=== PATIENT | male | born 1960 | race Caucasian/White ===

== ENCOUNTER 2019-02-25 09:49 | Inpatient (IN) | payer OTHER ==
[2019-02-25 10:41] VITALS: BMI 31.4
--- NOTE | 2019-02-25 11:50 | HP ---
COWS - Scale Resting Pulse: 0= NE 80 or Below Sweatin= Chills/Flushing Restless Observation: 1= Difficult to Sit Still Pupil Size: 1= Pupils >than Normal Bone or Joint Aches: 2= Severe Diffuse Aches Runny Nose/ Eye Tearin= Runny Nose/Eyes GI Upset > 30mins: 2= Nausea/Diarrhea Tremor Observation: 2= Slight Tremor Visible Yawning Observation: 2= >3x During Session Anxiety or Irritability: 2=Irritable/Anxious Goose Flesh Skin: 0=Smooth Skin COWS Score: 15 CIWA Score - Admission Criteria OASAS Guidelines: Admission for Medically Managed Detox: Requires at least one of the followin. CIWA greater than 12 2. Seizures within the past 24 hours 3. Delirium tremens within the past 24 hours 4. Hallucinations within the past 24 hours 5. Acute intervention needed for co occurring medical disorder 6. Acute intervention needed for co occurring psychiatric disorder 7. Severe withdrawal that cannot be handled at a lower level of care (continued vomiting, continued diarrhea, abnormal vital signs) requiring intravenous medication and/or fluids 8. Admission ROS S - HPI Chief Complaint: i need help to stop using heroin Allergies/Adverse Reactions: Allergies Allergy/AdvReac Type Severity Reaction Status Date / Time No Known Allergies Allergy Verified 02/25/19 10:20 History of Present Illness: this 58 years old male with heroin dependence,seeking detox,withdrawal symptom, seen at [facility] refer for detox, last detox [facility] 02/19 completed but relapsing nicotine dependence 1 pack/day,would like nicotine patch low back pain plan for rehab no significant period of sobriety Exam Limitations: No Limitations - Ebola screening Have you traveled outside of the country in the last 21 days: No Have you had contact with anyone from an Ebola affected area: No Do you have a fever: No - Review of Systems Constitutional: Chills, Loss of Appetite, Malaise, Night Sweats, Changes in sleep, Weakness EENT: reports: Tearing, Nose Congestion Respiratory: reports: No Symptoms reported Cardiac: reports: No Symptoms Reported GI: reports: Diarrhea, Nausea, Vomiting, Abdominal cramping : reports: No Symptoms Reported Musculoskeletal: reports: Back Pain, Joint Pain, Muscle Pain, Joint Stiffness Integumentary: reports: Dryness Neuro: reports: Headache, Tremors Endocrine: reports: No Symptoms Reported, See HPI, Excessive Sweating, Flushing Hematology: reports: No Symptoms Reported Psychiatric: reports: No Sypmtoms Reported, Judgement Intact, Mood/Affect Appropiate, Orientated x3 Other Systems: Reviewed and Negative Patient History - Patient Medical History Hx Anemia: No Hx Asthma: No Hx Chronic Obstructive Pulmonary Disease (COPD): No Hx Cancer: No Hx Cardiac Disorders: No Hx Congestive Heart Failure: No Hx Hypertension: No Hx Hypercholesterolemia: No Hx Pacemaker: No HX Cerebrovascular Accident: No Hx Seizures: No Hx Dementia: No Hx Diabetes: No Hx Gastrointestinal Disorders: No Hx Liver Disease: No Hx Genitourinary Disorders: No Hx Sexually Transmitted Disorders: No Hx Renal Disease (ESRD): No Hx Thyroid Disease: No Hx Human Immunodeficiency Virus (HIV): No (2016 negative) Hx Hepatitis C: No Hx Depression: No Hx Suicide Attempt: No Hx Bipolar Disorder: No Hx Schizophrenia: No Other Medical History: no suicidal,no homicidal - Patient Surgical History Past Surgical History: No - PPD History Previous Implant?: Yes Documented Results: Negative w/o proof Implanted On Prior [facility] Admission?: No PPD to be Administered?: Yes - Smoking Cessation Smoking history: Current every day smoker Have you smoked in the past 12 months: Yes Aproximately how many cigarettes per day: 20 Hx Chewing Tobacco Use: No Initiated information on smoking cessation: Yes 'Breaking Loose' booklet given: 02/25/19 - Substance & Tx. History Hx Alcohol Use: No Hx Substance Use: Yes Substance Use Type: Heroin Hx Substance Use Treatment: Yes ([facility] 02/19) - Substances abused Heroin Substance route: Inhalation Frequency: Daily Amount used: 15 bags Age of first use: 53 Date of last use: 02/24/19 Family Disease History - Family Disease History Family Disease History: Other: Daughter (dsa,alcohol) Admission Physical Exam BHS - Vital Signs Vital Signs: Vital Signs - 24 hr 02/25/19 02/25/19 10:38 11:38 Temperature 98.3 F 98.3 F Pulse Rate 59 L 59 L Respiratory 20 20 Rate Blood Pressure 125/80 125/80 - Physical General Appearance: Yes: Moderate Distress, Tremorous, Irritable, Sweating, Anxious HEENTM: Yes: Normal ENT Inspection, FIGUEROA, Pharynx Normal Respiratory: Yes: Lungs Clear, Normal Breath Sounds, No Respiratory Distress Neck: Yes: Within Normal Limits, Supple, Trachea in good position Breast: Yes: Within Normal Limits Cardiology: Yes: Bradycardia Abdominal: Yes: Within Normal Limits, Normal Bowel Sounds, Non Tender, Flat, Soft Genitourinary: Yes: Within Normal Limits Back: Yes: Normal Inspection, Muscle Spasm Musculoskeletal: Yes: full range of Motion, Back pain, Joint Stiffness, Muscle Pain Extremities: Yes: Within Normal Limits, Normal Range of Motion, Tremors 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, Fully Oriented, Alert, Motor Strength 5/5 Integumentary: Yes: Dry Lymphatic: Yes: Within Normal Limits - Diagnostic (1) Opioid dependence with withdrawal Current Visit: Yes Status: Acute (2) Nicotine dependence Current Visit: Yes Status: Acute (3) Insomnia Current Visit: Yes Status: Acute (4) Dehydration Current Visit: Yes Status: Acute Cleared for Admission S - Detox or Rehab [facility] Level of Care: Medically Managed Detox Regimen/Protocol: Methadone Screened but not Admitted - Documentation of Visit Screened but not Admitted: No Breathalyzer - Breathalyzer Breathalyzer: 0 Urine Drug Screen - Test Device Lot number: [id number] Expiration date: 11/01/20 - Control Is test valid?: Yes - Results Drug screen NEGATIVE: No Urine drug screen results: FEN-Fentanyl, MOP-Opiates, MTD-Methadone, BZO- Benzodiazepines Inpatient Rehab Admission - Rehab Decision to Admit Inpatient rehab admission?: No
[2019-02-25] MEDS ORDERED: IBUPROFEN 400 MG TABLET (FP) PO PRN (12:00)
[2019-02-25] MEDS ORDERED: MAG HYDROX/AL HYDROX/SIMETH 30 ML UNIT-DOSE CUP PO PRN (12:00)
[2019-02-25] MEDS ORDERED: BISMUTH SUBSALICYLATE 262 MG/15 ML BTL PO PRN (12:00)
[2019-02-25] MEDS ORDERED: MENTHOL/PHENOL 1 EACH UD MM PRN (12:00)
[2019-02-25] MEDS ORDERED: ACETAMINOPHEN 325 MG TABLET (FP) PO PRN ×2 (12:00)
[2019-02-25] MEDS ORDERED: MELATONIN 5 MG TABLETS PO PRN (12:00)
[2019-02-25] MEDS ORDERED: MAGNESIUM HYDROX 2400MG/30ML ORAL SUSPENSION 30 ML CUP PO PRN (12:00)
[2019-02-25] MEDS ORDERED: hydrOXYzine PAMOATE 25 MG CAPSULE (FP) PO PRN (12:00)
[2019-02-25] MEDS ORDERED: MAGNESIUM CITRATE 300 ML BOTTLE PO PRN (12:00)
[2019-02-25] MEDS ORDERED: TRIMETHOBENZAMIDE HCL 200MG/2ML INJ IM PRN (12:02)
[2019-02-25] MEDS ORDERED: METHADONE HCL 10 MG TABLET (FOR DETOX USE ONLY) PO ONE ×2 (12:20→23:00)
[2019-02-25] MEDS: NICOTINE 21 MG/24 HOURS TOPICAL PATCH TD SCH (13:09)
[2019-02-25] MEDS: METHOCARBAMOL 500 MG TABLET PO PRN ×2 (14:31→22:13)
[2019-02-25] MEDS: diazePAM 5 MG TABLET PO PRN ×2 (14:31→22:12)
[2019-02-25 15:32] LABS: HEMATOCRIT 42.9 % (35.4-49); HEMOGLOBIN 14.9 GM/dL (11.7-16.9); MCH 28.7 pg (25.7-33.7); MCHC 34.7 g/dl (32.0-35.9); MEAN CELL VOLUME 82.6 fl (80-96); MEAN PLT VOLUME 8.9 fl (7.5-11.1); PLATELET COUNT 223 K/MM3 (134-434); RBC 5.19 M/mm3 (4.00-5.60); RDW 13.5 % (11.9-15.9); WHITE BLOOD COUNT 11.5 K/mm3 (4.0-10.0)
[2019-02-25 16:03] LABS: BILIRUBIN,TOTAL 0.7 mg/dL (0.2-1); BLOOD UREA NITROGEN 13.8 mg/dL (7-18); CALCIUM 9.2 mg/dL (8.5-10.1); CREATININE 0.9 mg/dL (0.55-1.3); TOT PROT 7.8 g/dl (6.4-8.2)
[2019-02-25] MEDS: cloNIDine HCL 0.1 MG TABLET PO PRN (17:12)
[2019-02-25 17:59] LABS: EPI CELLS 0.8 /HPF (0-5/HPF); HYALINE CASTS 7 /lpf (0-8); URINE APPEARANCE TURBID; URINE BACTERIA 1.4 /hpf (NEGATIVE); URINE BILIRUBIN NEGATIVE (NEGATIVE); URINE COLOR ORANGE; URINE GLUCOSE (UA) NEGATIVE (NEGATIVE); URINE KETONE TRACE (NEGATIVE); URINE LEUK ESTERASE TRACE (NEGATIVE); URINE NITRITE NEGATIVE (NEGATIVE); URINE PROTEIN TRACE (NEGATIVE); URINE RBC 17 /hpf (0-4); URINE UROBILINOGEN 0.2 mg/dL (0.2-1.0); URINE WBC 2 /hpf (0-5)
[2019-02-25] MEDS: THIAMINE HCL 100 MG TABLET (FP) PO SCH (22:13)
[2019-02-26] MEDS ORDERED: METHADONE HCL 10 MG TABLET (FOR DETOX USE ONLY) PO ONE (10:00)
[2019-02-26] MEDS: diazePAM 5 MG TABLET PO PRN ×2 (10:10→20:45)
[2019-02-26] MEDS: PRENATAL VITAMINS W/ FOLIC ACID TABLET (FP) PO SCH (10:10)
[2019-02-26] MEDS: NICOTINE 21 MG/24 HOURS TOPICAL PATCH TD SCH (10:10)
[2019-02-26] MEDS: METHOCARBAMOL 500 MG TABLET PO PRN (10:11)
[2019-02-26] MEDS ORDERED: TRIMETHOBENZAMIDE HCL 300 MG CAPSULE PO PRN (10:15)
--- NOTE | 2019-02-26 10:28 | CONSULT ---
[facility] Psychiatric Consult - Data Date of interview: 02/26/19 Admission source: [facility] Identifying data: First admission to [facility] for this patient, referred by [facility], for detoxification treatment (heroin). Interviewed in the presence of medical students (patient gave verbal permission) . Patient is , a father of two, domiciled and currently employed as a social worker psychiatric. Substance Abuse History: Discussed in this session. Mr Squires confirms a history of escalating heroin use (1000 dollars every two weeks) and sporadic use of cocaine (not used for several months). More details in current [facility] report as follows : Smoking history: Current every day smoker. Have you smoked in the past 12 months: Yes. Aproximately how many cigarettes per day: 20. Hx Chewing Tobacco Use: No. Initiated information on smoking cessation: Yes. ' Breaking Loose' booklet given: 02/25/19. - Substance & Tx. History. Hx Alcohol Use: No. Hx Substance Use: Yes. Substance Use Type: Heroin. Hx Substance Use Treatment: Yes ([facility] 02/19). - Substances abused. Heroin. Substance route: Inhalation. Frequency: Daily. Amount used: 15 bags. Age of first use: 53. Date of last use: 02/24/19 Medical History: Medical profile is remarkable for a distant history of neurosurgery (craniotomy) for meningioma at age 28, seizure disorder ( prescribed levetiracetam but non-adherent) and episodic perceptual disturbances (auras, cacosmia, visual hallucinations : light flashes, colors). No reported allergies. Psychiatric History: Patient denies history of psychiatric hospitalizations. Only one CPEP visit at [facility] three weeks ago for a withdrawal syndrome. Mr Squires endorses MDD as his psychiatric diagnosis and he indicates that, a year ago, he was maintained on a regimen of paroxetine + quetiapine. Patient reports that his addiction to heroin escalated after the of his (1 1/2 years ago). He has stopped seeing his psychiatrist, Dr Donn Mcgraw , for medication management and dropped out of psychiatric follow-up (for several months). No reported history of suicide attempts. Physical/Sexual Abuse/Trauma History: Heavy history of trauma : witnessed the of his (opioid overdose). Additional Comment: Urine drug screen results: FEN-Fentanyl, MOP-Opiates, MTD- Methadone, BZO-Benzodiazepines. Noted. Mental Status Exam - Mental Status Exam Alert and Oriented to: Time, Place, Person Cognitive Function: Good Patient Appearance: Disheveled (unshaven but wearing clean hospital gowns) Mood: Nervous, Anxious, Apprehensive Affect: Mood Congruent, Constricted Patient Behavior: Fatigued, Talkative, Appropriate, Cooperative Speech Pattern: Clear, Appropriate (articulate, clear historian), Excessive Voice Loudness: Normal Thought Process: Intact, Goal Oriented Thought Disorder: Not Present Hallucinations: Denies Suicidal Ideation: Denies Homicidal Ideation: Denies Insight/Judgement: Poor Sleep: Poorly, Difficulty falling asleep Appetite: Good Muscle strength/Tone: Normal Gait/Station: Normal Psychiatric Findings - Problem List ([place] 1, 2,3) (1) Opioid dependence with withdrawal Current Visit: Yes Status: Acute (2) Nicotine dependence Current Visit: Yes Status: Chronic (3) Substance induced mood disorder Current Visit: Yes Status: Chronic (4) Insomnia Current Visit: Yes Status: Chronic (5) Non-compliance Current Visit: Yes Status: Chronic - Initial Treatment Plan Initial Treatment Plan: Psychoeducation. Support and empathy. Sleep hygiene. Detoxification. Relapse prevention measures (MAT) : discussed in this session. Motivational counseling. AA meetings. Groups. Patient is reminded of the importance of adherence to anticonvulsant medications + compliance with appointments with his neurologist. Rehabilitation recommended. No indication for resumption of SSRI medications (not taken for a year + complaint of sexual adverse effects). On the other hand, the patient has expressed interest for trazodone at bedtime (insomnia). Seroquel is offered (rejected by the patient due to his diabetic status). Trazodone 50 mg po hs. Side effects/benefits discussed. Mr Squires is made aware, in particular, of the risk of priapism. Gave his verbal consent for the inclusion of this drug to the current regime of medications. Observation.
--- NOTE | 2019-02-26 10:33 | EKG ---
Test Reason : Blood Pressure : / mmHG Vent. Rate : 048 BPM Atrial Rate : 048 BPM P-R Int : 174 ms QRS Dur : 106 ms QT Int : 470 ms P-R-T Axes : 033 -09 014 degrees QTc Int : 419 ms SINUS BRADYCARDIA OTHERWISE NORMAL ECG NO PREVIOUS ECGS AVAILABLE Confirmed by Fritz Zavaleta MD ([id number]) on 02/26/2019 10:33:13 AM Referred By: Confirmed By:Fritz Zavaleta MD
--- NOTE | 2019-02-26 15:19 | PN ---
BHS COWS - Scale Resting Pulse: 0= [place] 80 or Below Sweatin= Chills/Flushing Restless Observation: 1= Difficult to Sit Still Pupil Size: 0= Normal to Room Light Bone or Joint Aches: 2= Severe Diffuse Aches Runny Nose/ Eye Tearin= None GI Upset > 30mins: 3= Vomiting/Diarrhea Tremor Observation of Outstretched Hands: 2= Slight Tremor Visible Yawning Observation: 1= 1-2x During Session Anxiety or Irritability: 4=Extreme Anxiety Goose Flesh Skin: 0=Smooth Skin COWS Score: 14 BHS Progress Note (SOAP) Subjective: Anxious, Sweating, Nausea, Stomach Cramping, Body Aches, Diarrhea, Interrupted Sleep. Objective: PATIENT A & O X 3, OBSERVED AMBULATING ON UNIT UNASSISTED. IN NO ACUTE DISTRESS. PATIENT IS AFEBRILE. 02/26/19 15:15 Vital Signs Temperature 98.7 F 02/26/19 13:26 Pulse Rate 67 02/26/19 13:26 Respiratory Rate 20 02/26/19 13:26 Blood Pressure 112/80 02/26/19 13:26 O2 Sat by Pulse Oximetry (%) Laboratory Tests 02/25/19 02/25/19 02/25/19 12:00 12:00 12:00 WBC 11.5 H RBC 5.19 Hgb 14.9 Hct 42.9 MCV 82.6 MCH 28.7 MCHC 34.7 RDW 13.5 Plt Count 223 MPV 8.9 Sodium 137 Potassium 4.0 Chloride 104 Carbon Dioxide 26 Anion Gap 7 L BUN 13.8 Creatinine 0.9 Est GFR (CKD-EPI)AfAm 109.50 Est GFR (CKD-EPI)NonAf 94.48 Random Glucose 105 Calcium 9.2 Total Bilirubin 0.7 AST 13 L ALT 21 Alkaline Phosphatase 87 Total Protein 7.8 Albumin 4.0 Urine Color Urine Appearance Urine pH Ur Specific [place] Urine Protein Urine Glucose (UA) Urine Ketones Urine Blood Urine Nitrite Urine Bilirubin Urine Urobilinogen Ur Leukocyte Esterase Urine WBC (Auto) Urine RBC (Auto) Urine Casts (Auto) U Epithel Cells (Auto) Urine Bacteria (Auto) RPR Titer Nonreactive 02/25/19 17:18 WBC RBC Hgb Hct MCV MCH MCHC RDW Plt Count MPV Sodium Potassium Chloride Carbon Dioxide Anion Gap BUN Creatinine Est GFR (CKD-EPI)AfAm Est GFR (CKD-EPI)NonAf Random Glucose Calcium Total Bilirubin AST ALT Alkaline Phosphatase Total Protein Albumin Urine Color [place] Urine Appearance Turbid Urine pH 5.0 Ur Specific [place] 1.025 Urine Protein Trace Urine Glucose (UA) Negative Urine Ketones Trace H Urine Blood 3+ H Urine Nitrite Negative Urine Bilirubin Negative Urine Urobilinogen 0.2 Ur Leukocyte Esterase Trace Urine WBC (Auto) 2 Urine RBC (Auto) 17 Urine Casts (Auto) 7 U Epithel Cells (Auto) 0.8 Urine Bacteria (Auto) 1.4 RPR Titer LABS NOTED. ELEVATED ADMISSION WBC LEVEL NOTED. PATIENT REPORTS HISTORY OF OCCASIONAL BRIEF EPISODES OF SOB, BUT DENIES CURRENTLY. PATIENT DENIES ANY UNUSUAL URINARY COMPLAINTS (BURNING, PAIN, FREQUENCY, URGENCY , HESITANCY). 02/26/19 15:19 Assessment: 02/26/19 15:17 WITHDRAWAL SYMPTOMS. LEUKOCYTOSIS HEMATURIA. 02/26/19 15:17 Plan: CONTINUE DETOX. INCREASE DAILY PO WATER INTAKE. REPAT UA FOR HEMATURIA NOTED ON ADMISSION UA ASSESSMENT. REPEAT CBC FOR ELEVATED WBC LEVEL NOTED ON ADMISSION CBC - RESULT PENDING. PATIENT REPORTS THAT HE HEARS VOICES SOMETIMES, BUT HE DENIES CAH FROM THE VOICES. PSYCHIATRIC CONSULTATION ALREADY PREVIOUSLY ORDERED FOR PATIENT.
--- NOTE | 2019-02-26 15:24 | PN ---
[facility] Progress Note Note: ALTHOUGH PATIENT APPARENTLY DENIED SO ON DETOX ADMISSION HISTORY AND PHYSICAL ASSESSMENT, PATIENT NOW REPORTS A HISTORY OF POSITIVE PPD (DUE TO A VACCINATION THAT HE RECEIVED DURING CHILDHOOD). CXR ORDERED. Zenia CYR NP
[2019-02-26 15:32] LABS: BASO % 0.3 % (0-2.0); EOS % 0.1 % (0-4.5); HEMATOCRIT 42.6 % (35.4-49); HEMOGLOBIN 14.7 GM/dL (11.7-16.9); LYMPH % 13.7 % (8-40); MCH 28.3 pg (25.7-33.7); MCHC 34.6 g/dl (32.0-35.9); MEAN CELL VOLUME 81.9 fl (80-96); MEAN PLT VOLUME 8.6 fl (7.5-11.1); MONO % 6.7 % (3.8-10.2); NEUT % 79.2 % (42.8-82.8); PLATELET COUNT 244 K/MM3 (134-434); RBC 5.21 M/mm3 (4.00-5.60); RDW 13.1 % (11.9-15.9); WHITE BLOOD COUNT 14.4 K/mm3 (4.0-10.0)
[2019-02-26] MEDS ORDERED: traZODone HCL 50 MG TABLET (FP) PO SCH (22:00)
[2019-02-26] MEDS: THIAMINE HCL 100 MG TABLET (FP) PO SCH (22:11)
[2019-02-27] MEDS: diazePAM 5 MG TABLET PO PRN ×2 (03:16→09:16)
[2019-02-27] MEDS: cloNIDine HCL 0.1 MG TABLET PO PRN (07:33)
[2019-02-27] MEDS: METHOCARBAMOL 500 MG TABLET PO PRN (07:36)
[2019-02-27 09:01] VITALS: BP 102/62; PULSE 69; TEMP 98.7
[2019-02-27] MEDS: NICOTINE 21 MG/24 HOURS TOPICAL PATCH TD SCH (09:16)
[2019-02-27] MEDS: PRENATAL VITAMINS W/ FOLIC ACID TABLET (FP) PO SCH (09:16)
[2019-02-27] MEDS ORDERED: METHADONE HCL 10 MG TABLET (FOR DETOX USE ONLY) PO ONE (10:00)
--- NOTE | 2019-02-27 16:06 | PN ---
BHS COWS - Scale Resting Pulse: 0= [place] 80 or Below Sweatin= Chills/Flushing Restless Observation: 1= Difficult to Sit Still Pupil Size: 0= Normal to Room Light Bone or Joint Aches: 2= Severe Diffuse Aches Runny Nose/ Eye Tearin= None GI Upset > 30mins: 2= Nausea/Diarrhea Tremor Observation of Outstretched Hands: 2= Slight Tremor Visible Yawning Observation: 1= 1-2x During Session Anxiety or Irritability: 2=Irritable/Anxious Goose Flesh Skin: 0=Smooth Skin COWS Score: 11 BHS Progress Note (SOAP) Subjective: Anxious, Nausea, Tremors, Body Aches, Stomach Cramping, Nausea. Objective: PATIENT A & O X 3, OBSERVED AMBULATING ON UNIT UNASSISTED. IN NO ACUTE DISTRESS. 02/27/19 16:07 Vital Signs Temperature 98.7 F 02/27/19 09:01 Pulse Rate 69 02/27/19 09:01 Respiratory Rate 18 02/27/19 09:01 Blood Pressure 102/62 02/27/19 09:01 O2 Sat by Pulse Oximetry (%) Laboratory Tests 02/25/19 02/25/19 02/25/19 12:00 12:00 12:00 WBC 11.5 H RBC 5.19 Hgb 14.9 Hct 42.9 MCV 82.6 MCH 28.7 MCHC 34.7 RDW 13.5 Plt Count 223 MPV 8.9 Absolute Neuts (auto) Neutrophils % Lymphocytes % Monocytes % Eosinophils % Basophils % Nucleated RBC % Sodium 137 Potassium 4.0 Chloride 104 Carbon Dioxide 26 Anion Gap 7 L BUN 13.8 Creatinine 0.9 Est GFR (CKD-EPI)AfAm 109.50 Est GFR (CKD-EPI)NonAf 94.48 Random Glucose 105 Calcium 9.2 Total Bilirubin 0.7 AST 13 L ALT 21 Alkaline Phosphatase 87 Total Protein 7.8 Albumin 4.0 Urine Color Urine Appearance Urine pH Ur Specific [place] Urine Protein Urine Glucose (UA) Urine Ketones Urine Blood Urine Nitrite Urine Bilirubin Urine Urobilinogen Ur Leukocyte Esterase Urine WBC (Auto) Urine RBC (Auto) Urine Casts (Auto) U Epithel Cells (Auto) Urine Bacteria (Auto) RPR Titer Nonreactive 02/25/19 02/26/19 17:18 12:00 WBC 14.4 H RBC 5.21 Hgb 14.7 Hct 42.6 MCV 81.9 MCH 28.3 MCHC 34.6 RDW 13.1 Plt Count 244 MPV 8.6 Absolute Neuts (auto) 11.4 H Neutrophils % 79.2 Lymphocytes % 13.7 Monocytes % 6.7 Eosinophils % 0.1 Basophils % 0.3 Nucleated RBC % 0 Sodium Potassium Chloride Carbon Dioxide Anion Gap BUN Creatinine Est GFR (CKD-EPI)AfAm Est GFR (CKD-EPI)NonAf Random Glucose Calcium Total Bilirubin AST ALT Alkaline Phosphatase Total Protein Albumin Urine Color [place] Urine Appearance Turbid Urine pH 5.0 Ur Specific [place] 1.025 Urine Protein Trace Urine Glucose (UA) Negative Urine Ketones Trace H Urine Blood 3+ H Urine Nitrite Negative Urine Bilirubin Negative Urine Urobilinogen 0.2 Ur Leukocyte Esterase Trace Urine WBC (Auto) 2 Urine RBC (Auto) 17 Urine Casts (Auto) 7 U Epithel Cells (Auto) 0.8 Urine Bacteria (Auto) 1.4 RPR Titer LABS NOTED. RESULTS OF REPEAT CBC NOTED. WBC LEVEL NOW NOTED TO BE FURTHER INCREASED TO 14.4. 02/27/19 16:08 Assessment: 02/27/19 16:09 WITHDRAWAL SYMPTOMS. LEUKOCYTOSIS. Plan: CONTINUE DETOX PATIENT DENIES ANY UNUSUAL URINARY COMPLAINTS (BURNING, PAIN, FREQUENCY, URGENCY , HESITANCY). REPEAT UA NEVER COLLECTED. PATIENT DENIES SOB, CHEST PAIN, AND DYSPNEA. LUNG SOUNDS AUSCULTATED CLEAR AND EQUAL BILATERALLY. SITE MONITOR WAS ABOUT TO CONTACT [facility] ER TO INQUIRE ABOUT SENDING PATIENT FOR FURTHER MEDICAL EVALUATION FOR ELEVATED WBC LEVEL NOTED ON ADMISSION AND ON REPEAT LABORATORY ASSESSMENT. HOWEVER, PATIENT ELECTED LEAVE DETOX UNIT AGAINST MEDICAL ADVICE BEFORE SITE MONITOR COULD SO. PATIENT MADE AWARE OF ABNORMAL WBC RESULTS, BUT ELECTED TO LEAVE DETOX UNIT AGAINST MEDICAL ADVICE ANYWAY. SEE FOLLOWING [facility] DETOX DISCHARGE SUMMARY.
--- NOTE | 2019-02-27 16:22 | DS ---
[facility] Detox Discharge Summary Admission Date: 02/25/19 Discharge Date: 02/27/19 - History Present History: Opioid Dependence Additional Comments: PATIENT REPORTS THAT HE HAS A PERSONAL ISSUE TO ATTEND TO AND THAT HE DOES NOT WISH TO REMAIN TO COMPLETE DETOX REGIMEN. RISKS OF LEAVING DETOX UNIT AGAINST MEDICAL ADVICE AND PRIOR TO COMPLETION OF DETOX REGIMEN EXPLAINED TO PATIENT. DESPITE WANTING TO LEAVE DETOX UNIT AGAINST MEDICAL ADVICE, PATIENT STILL STRONGLY ADVISED, PRIOR TO LEAVING DEOTX UNIT, TO BE TAKEN VIA AMBULANCE TO [facility] ER FOR FURTHER MEDICAL EVALUATION FOR ELEVATED WBC LEVEL NOTED ON DETOX ADMISSION AND REPEAT LABORATORY ASSESSMENTS AND FOR HEMATURIA NOTED ON ADMISSION UA (REPEAT UA ORDERED FOR FURTHER EVALUATION; HOWEVER, PATIENT DID NOT SUBMIT URINE FOR REPEAT UA PRIOR TO LEAVING DETOX UNIT AGAINST MEDICAL ADVICE). 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 PATIENT ADVISED TO DO SOON POSSIBLE. COPIES OF RESULTS OF ALL LABS (INCLUDING ADMISSION AND REPEAT CBC AND UA) DRAWN WHILE ADMITTED FOR DETOX GIVEN TO PATIENT AT TIME OF DISCHARGE FROM DETOX UNIT. PATIENT ALSO ADVISED TO GO IMMEDIATELY TO NEAREST ER SHOULD ANY INTOLERABLE WITHDRAWAL / DETOX SYMPTOMS DEVELOP AT ANY TIME. PATIENT VERBALIZED UNDERSTANDING OF ALL INFORMATION / RECOMMENDATIONS PRESENTED TO HIM PRIOR TO DEPARTURE FROM DETOX UNIT. PATIENT AFEBRILE AT TIME IN WHICH HE LEFT DETOX UNIT. Pertinent Past History: Nicotine Dependence, Dehydration, Insomnia, Hematuria, Leukocytosis. - Physical Exam Results Vital Signs: Vital Signs Temperature 98.7 F 02/27/19 09:01 Pulse Rate 69 02/27/19 09:01 Respiratory Rate 18 02/27/19 09:01 Blood Pressure 102/62 02/27/19 09:01 O2 Sat by Pulse Oximetry (%) Pertinent Admission Physical Exam Findings: WITHDRAWAL SYMPTOMS. Laboratory Tests 02/25/19 02/25/19 02/25/19 12:00 12:00 12:00 WBC 11.5 H RBC 5.19 Hgb 14.9 Hct 42.9 MCV 82.6 MCH 28.7 MCHC 34.7 RDW 13.5 Plt Count 223 MPV 8.9 Absolute Neuts (auto) Neutrophils % Lymphocytes % Monocytes % Eosinophils % Basophils % Nucleated RBC % Sodium 137 Potassium 4.0 Chloride 104 Carbon Dioxide 26 Anion Gap 7 L BUN 13.8 Creatinine 0.9 Est GFR (CKD-EPI)AfAm 109.50 Est GFR (CKD-EPI)NonAf 94.48 Random Glucose 105 Calcium 9.2 Total Bilirubin 0.7 AST 13 L ALT 21 Alkaline Phosphatase 87 Total Protein 7.8 Albumin 4.0 Urine Color Urine Appearance Urine pH Ur Specific [place] Urine Protein Urine Glucose (UA) Urine Ketones Urine Blood Urine Nitrite Urine Bilirubin Urine Urobilinogen Ur Leukocyte Esterase Urine WBC (Auto) Urine RBC (Auto) Urine Casts (Auto) U Epithel Cells (Auto) Urine Bacteria (Auto) RPR Titer Nonreactive 02/25/19 02/26/19 17:18 12:00 WBC 14.4 H RBC 5.21 Hgb 14.7 Hct 42.6 MCV 81.9 MCH 28.3 MCHC 34.6 RDW 13.1 Plt Count 244 MPV 8.6 Absolute Neuts (auto) 11.4 H Neutrophils % 79.2 Lymphocytes % 13.7 Monocytes % 6.7 Eosinophils % 0.1 Basophils % 0.3 Nucleated RBC % 0 Sodium Potassium Chloride Carbon Dioxide Anion Gap BUN Creatinine Est GFR (CKD-EPI)AfAm Est GFR (CKD-EPI)NonAf Random Glucose Calcium Total Bilirubin AST ALT Alkaline Phosphatase Total Protein Albumin Urine Color [place] Urine Appearance Turbid Urine pH 5.0 Ur Specific [place] 1.025 Urine Protein Trace Urine Glucose (UA) Negative Urine Ketones Trace H Urine Blood 3+ H Urine Nitrite Negative Urine Bilirubin Negative Urine Urobilinogen 0.2 Ur Leukocyte Esterase Trace Urine WBC (Auto) 2 Urine RBC (Auto) 17 Urine Casts (Auto) 7 U Epithel Cells (Auto) 0.8 Urine Bacteria (Auto) 1.4 RPR Titer LABS NOTED. - Treatment Hospital Course: Detox Protocol Followed - Medication Discharge Medications: Ambulatory Orders NK [No Known Home Medication] 02/25/19 - Diagnosis (1) Dehydration Status: Acute (2) Hematuria Status: Acute Qualifiers: Hematuria type: unspecified type Qualified Code(s): R31.9 - Hematuria, unspecified (3) Leukocytosis Status: Acute Qualifiers: Leukocytosis type: unspecified Qualified Code(s): D72.829 - Elevated white blood cell count, unspecified (4) Opioid dependence with withdrawal Status: Acute (5) Insomnia Status: Chronic Qualifiers: Insomnia type: unspecified Qualified Code(s): G47.00 - Insomnia, unspecified (6) Nicotine dependence Status: Chronic Qualifiers: Nicotine product type: cigarettes Substance use status: uncomplicated Qualified Code(s): F17.210 - Nicotine dependence, cigarettes, uncomplicated (7) Non-compliance Status: Chronic (8) Substance induced mood disorder Status: Chronic - AMA Did Patient Leave Against Medical Advice: Yes (PT HAD PERSONAL ISSUE AND DID NOT WISH TO REMAIN TO COMPLETE DETOX.)
[2019-02-28] MEDS ORDERED: METHADONE (DETOX) 10 MG, METHADONE (DETOX) 5 MG PO ONE (10:00)
[2019-02-28] MEDS ORDERED: METHADONE HCL 10 MG TABLET (FOR DETOX USE ONLY) PO ONE (10:00)
[2019-03-01] MEDS ORDERED: METHADONE HCL 5 MG TABLET (FOR DETOX USE ONLY) PO ONE (06:00)
[2019-03-01] MEDS ORDERED: METHADONE HCL 10 MG TABLET (FOR DETOX USE ONLY) PO ONE (10:00)
[2019-03-02] MEDS ORDERED: METHADONE HCL 5 MG TABLET (FOR DETOX USE ONLY) PO ONE (06:00)
== END 2019-02-27 11:07 | disposition left against medical advice (07) | DRG 770 ==
LOC: YASAS 09:49 → Y3N 11:53
PROVIDERS: ADMIT Surgery; ATTEND Surgery
PROC: HZ2ZZZZ Detoxification Services for Substance Abuse Treatment (ICD-10-PCS; principal; 2019-02-25)
DX: F11.23 Opioid dependence with withdrawal (principal); F17.210 Nicotine dependence, cigarettes, uncomplicated; F19.24 Other psychoactive substance dependence with psychoactive substance-induced mood disorder; E86.0 Dehydration; R31.9 Hematuria, unspecified; D72.829 Elevated white blood cell count, unspecified; G47.00 Insomnia, unspecified; G40.909 Epilepsy, unspecified, not intractable, without status epilepticus; R00.1 Bradycardia, unspecified; Z91.14 Patient's other noncompliance with medication regimen
CPT/HCPCS: 36415; 80053; 81003; 85025; 85027; 86593; 93005; 93010; J0735